=== PATIENT | male | born 1975 | race African-American/Black ===

== ENCOUNTER 2018-03-29 11:08 | Emergency (ER) | payer OTHER ==
[~2018-03-29] VITALS: Ht 185.4 cm; Wt 104.0 kg
[~2018-03-29 11:08] MED LIST: MEDROLDOSEPACK PO; TAMIFLU75 MG PO; TYLENOL325 MG PO
[2018-03-29 11:44] LABS: HEMOGLOBIN 15.2 gm/dL (14.0-18.0); MCH 30.2 pg (26.0-34.0); MCV 91.5 fL (80.0-100.0); MPV 7.8 fl. (7.2-11.1); NUCLEATED RBCS 0 /100WBC; PLATELET COUNT* 214 thou/uL (150-400); RBC 5.02 mil/uL (4.50-6.00); RDW-CV 13.9 % (10.5-14.5); WBC 6.8 thou/uL (4.0-11.0)
[2018-03-29 11:52] LABS: ANION GAP 11 mmol/L (7-16); APTT 25.7 Seconds (25.0-31.3); BUN 17 mg/dL (7-18); CALCIUM 8.8 mg/dL (8.5-10.1); CHLORIDE 102 mmol/L (98-107); CO2 26 mmol/L (21-32); CREATININE 1.4 mg/dL (0.6-1.3); GLUCOSE 98 mg/dL (70-99); POTASSIUM 3.7 mmol/L (3.5-5.1); PROTIME 10.7 Seconds (9.20-11.50); SODIUM 139 mmol/L (136-145)
[2018-03-29 12:03] LABS: ALBUMIN 4.1 g/dL (3.4-5.0); ALKALINE PHOSPHATASE 78 U/L (46-116); LIPASE 109 U/L (73-393); MAGNESIUM 1.5 mg/dL (1.8-2.4); NT-PRO BRAIN NAT PEPTIDE 38 pg/mL (<300); SGOT 24 U/L (15-37); SGPT 26 U/L (30-65); TOTAL BILIRUBIN 0.7 mg/dL (<0.1-1.0); TOTAL PROTEIN 7.6 g/dL (6.4-8.2); TROPONIN-I LEVEL <0.06 ng/mL (<0.06)
[2018-03-29 12:15] LABS: ABSOLUTE LYMPHOCYTES 0.5 thou/uL (0.8-5.3); ABSOLUTE MONOCYTES 0.1 thou/uL (0.0-1.2); ABSOLUTE NEUTROPHILS 6.1 thou/uL (1.6-8.1); PLATELET ESTIMATE ADEQUATE
[2018-03-29 12:25] LABS: INFLUENZA A ANTIGEN None Detected (None Detect); INFLUENZA B ANTIGEN None Detected (None Detect)
[2018-03-29] MEDS ORDERED: AUGMENTIN 875-1 EACH PO (12:42)
[2018-03-29] MEDS ORDERED: VENTOLIN HFA 1818 GM INH (12:42)
[2018-03-29] MEDS ORDERED: PREDNISONE 20 M20 M1 PO (12:42)
[2018-03-29 12:55] VITALS: BP 157/79
--- NOTE | 2018-03-29 16:51 | EKG ---
[place] [address] ELECTROCARDIOGRAM REPORT Name: PAMELA MISTRY Room: [facility]#: [id number] Admission: 03/29/18 Attend Phys: Discharge: 03/29/18 Date of : 71 Report #: [id number] THIS REPORT FOR: //name// [facility] ED Test Date: 2018-03-29 Test Time: 11:20:37 Pat Name: PAMELA MISTRY Department: Room: Gender: M Substance Abuse Technician: Manjula NICOLE : 1975 Requested By: Mahamed Westfall Order Number: [id number] MD: Loco Hernandez Measurements Intervals Ayer Rate: 111 P: 62 TN: 140 QRS: 36 QRSD: 92 T: 40 QT: 294 QTc: 400 Interpretive Statements Sinus tachycardia RSR' in V1 or V2, right VCD or RVH Compared to ECG 03/22/2015 21:33:16 Right ventricular hypertrophy now present Sinus rhythm no longer present T-wave abnormality no longer present Electronically Signed On 03-29-2018 16:50:57 BEARING MACHINE OPERATOR by Loco Hernandez [email or web address] <ELECTRONICALLY SIGNED> By: Loco Hernandez MD, FACC 03/29/18 1650 1120 1120 Loco Hernandez MD, FACC /EPI
== END 2018-03-29 12:56 | disposition home or self-care (01) ==
LOC: M.ERS 11:08
PROVIDERS: Family Medicine
DX: J06.9 Acute upper respiratory infection, unspecified (principal); J45.909 Unspecified asthma, uncomplicated; I48.91 Unspecified atrial fibrillation

== ENCOUNTER 2018-04-02 09:53 | Inpatient (IN) | payer OTHER ==
[~2018-04-02] VITALS: Ht 198.1 cm; Wt 98.9 kg
--- NOTE | ~2018-04-02 | CON ---
[address] [address] CONSULTATION Name: PAMELA MISTRY Room: [address] IN M.R.#: [id number] Admission: 04/02/18 Attend Phys: Marcus Doherty MD Discharge: Date of : 71 Report #: [id number] THIS REPORT FOR: //name// CC: Marcus Vela DATE OF SERVICE: 04/03/2018 CONSULTATION: Infectious Diseases. HISTORY OF PRESENT ILLNESS: The patient is a 42-year-old gentleman admitted to the hospital yesterday when he was called by the ER that his previously drawn blood cultures had turned positive. The patient has been feeling ill for about 3 weeks. He was in the ER on 03/22/2018 complaining of chest pain. A cardiac workup was negative except for CPK of 602. Troponin negative. EKG, nonspecific. The patient returned to the ER on 03/29/2018 feeling worse. He is complaining of respiratory symptoms with congestion, headache, neck ache, fevers, chills with rigors. Workup was again negative and the patient was discharged with diagnosis of asthmatic bronchitis on Augmentin and prednisone 60 mg a day, tapering over a week. At that time, he was noted to have a temperature of 37.7 and a CPK was still elevated at 535. The patient then was called back on 04/02/2018 when the Microbiology Department in Center reported both blood cultures drawn on 03/29/2018 were positive for gram-negative rods. Workup for source of infection was negative. Today, the lab reports that the organism is identified as Haemophilus influenza in 2/2 blood cultures. In this setting, the patient was admitted to the hospital and Infectious Disease consultation was requested. PAST MEDICAL HISTORY: Significant for asthma and atrial fibrillation. The patient has a diagnosis of anxiety. He generally is healthy without ongoing medical problems. He usually works out, but has felt too ill for the last 3 or 4 weeks to really do his workout regimen. FAMILY HISTORY: Noncontributory. SOCIAL HISTORY: The patient's face sheet lists him as , although he describes himself as with emergency contact at the same address as him. He says his partner is a schoolteacher. 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 He denies use of tobacco, alcohol or drugs. He denies any HIV risk factors including sex with men, sex with prostitutes, IV drug use, etc. REVIEW OF SYSTEMS: The patient says he already feels much better since starting the oral antibiotic on 03/29/2018. He has not had any further fevers, chills, [place] [address] CONSULTATION Name: PAMELA MISTRY Room: [address] IN [facility]#: [id number] Admission: 04/02/18 Attend Phys: Marcus Doherty MD Discharge: Date of : 71 Report #: [id number] sweats. The patient denies headache, sinus congestion, sore throat, trouble swallowing. He notes a little bit of bloody drainage, which he thinks is from his sinuses. He still has some congestion and stiffness in his upper neck. Occasional sore throat, but mild. The patient says his cough has been generally dry and nonproductive. He has no dyspnea. His chest pain is much improved. The patient denies gastrointestinal symptoms including nausea, vomiting, diarrhea, constipation. Denies any urinary symptoms. He has some generalized aching in the extremities, which has improved with the Augmentin and prednisone. PHYSICAL EXAMINATION: GENERAL: The patient appears to be healthy middle-aged gentleman, alert, oriented, comfortable, not in any distress. VITAL SIGNS: Normal. The patient is afebrile. SKIN: Shows no rash, lesion or exanthem. ENT: Negative. No adenopathy. HEART: Sounds normal. LUNGS: Clear. ABDOMEN: Belly soft, nontender. EXTREMITIES: Unremarkable. LABORATORY DATA: White count is 12.8, hemoglobin 13.9, platelet 234,000. Electrolytes, BUN, creatinine, lipase, lactate were all normal. CPK on 03/29/[address] of the abdomen was unremarkable. The lung bases, which were seen in the abdominal study was clear. Chest x-ray 03/29/2018 was clear. ASSESSMENT AND PLAN: In summary, we have a 42-year-old generally healthy gentleman with upper respiratory symptoms and cough who had Haemophilus influenza in 2/2 blood cultures. I suggest we treat the patient with Rocephin 2 grams IV daily. If the patient continues to do well, we can probably discharge him tomorrow after his morning dose of Rocephin and continue outpatient infusion for a few days before going back to oral antibiotics. I would like to do a followup chest x-ray and CPK. We will have forensic social worker look at options for outpatient infusion. I appreciate the opportunity of input in the care of this pleasant gentleman. Dr. Lane will return tomorrow and assume followup care and can decide on how much IV versus oral antibiotics the patient would require. Thank you again for this consultation. By: [id number] christopher Matthews
[~2018-04-02 09:53] MED LIST changes: +AUGMENTIN 875-1 EACH PO; +PREDNISONE 20 M20 M1 PO; +VENTOLIN HFA 1818 GM INH
[2018-04-02 10:04] VITALS: BP 138/83
[2018-04-02] MEDS ORDERED: ANXIETY MED (10:06)
[2018-04-02 10:43] LABS: URINE BILIRUBIN NEGATIVE (Negative); URINE BLOOD 2+ (Negative); URINE CLARITY CLEAR; URINE COLOR YELLOW; URINE GLUCOSE-RANDOM NEGATIVE (Negative); URINE KETONES NEGATIVE (Negative); URINE LEUKOCYTES-REFLEX NEGATIVE (Negative); URINE NITRITE-REFLEX NEGATIVE (Negative); URINE PROTEIN NEGATIVE (Negative); URINE SPECIFIC GRAVITY >= 1.030 (1.005-1.030)
[2018-04-02 10:57] LABS: SQUAMOUS 0-3 Few /LPF (0-3); URINE RBC 3-10 Few /HPF (0-2); URINE WBC-REFLEX 0-5 Rare /HPF (0-5)
[2018-04-02 10:57] LABS: HEMATOCRIT 41.8 % (42.0-52.0); HEMOGLOBIN 14.1 gm/dL (14.0-18.0); MCH 30.3 pg (26.0-34.0); MCHC 33.7 g/dL (28.0-37.0); MPV 7.6 fl. (7.2-11.1); NUCLEATED RBCS 0 /100WBC; PLATELET COUNT* 234 thou/uL (150-400); RBC 4.64 mil/uL (4.50-6.00); WBC 12.7 thou/uL (4.0-11.0)
[2018-04-02 10:58] LABS: BACTERIA-REFLEX 1-9 Few /HPF (None Seen); CRYSTALS None Seen /LPF (None Seen); HYALINE CASTS 0-3 Few /LPF (None Seen); MUCUS >6 Heavy strn/LPF (None Seen)
[2018-04-02 11:06] LABS: ANION GAP 9 mmol/L (7-16); BUN 18 mg/dL (7-18); CALCIUM 8.7 mg/dL (8.5-10.1); CHLORIDE 105 mmol/L (98-107); CO2 28 mmol/L (21-32); CREATININE 1.2 mg/dL (0.6-1.3); GLUCOSE 90 mg/dL (70-99); POTASSIUM 3.4 mmol/L (3.5-5.1); SODIUM 142 mmol/L (136-145)
[2018-04-02 11:13] LABS: ALBUMIN 3.4 g/dL (3.4-5.0); ALKALINE PHOSPHATASE 64 U/L (46-116); SGOT 23 U/L (15-37); SGPT 36 U/L (30-65); TOTAL BILIRUBIN 0.2 mg/dL (<0.1-1.0); TROPONIN-I LEVEL <0.06 ng/mL (<0.06)
[2018-04-02 11:22] LABS: AMP/METHAMP Negative (Negative); BARBITURATES Negative (Negative); BENZODIAZEPINES Negative (Negative); COCAINE Negative (Negative); METHADONE Negative (Negative); OPIATES Negative (Negative); PCP Negative (Negative); THC Negative (Negative)
[2018-04-02 11:25] LABS: ABSOLUTE LYMPHOCYTES 4.4 thou/uL (0.8-5.3); ABSOLUTE NEUTROPHILS 7.2 thou/uL (1.6-8.1); PLATELET ESTIMATE ADEQUATE
[2018-04-02 11:26] LABS: ANISOCYTOSIS 1+; POIKILOCYTOSIS 1+
[2018-04-02 14:20] VITALS: BP 133/91
[2018-04-02 14:30] VITALS: BP 142/97
[2018-04-02 19:50] VITALS: BP 119/69
[2018-04-03 00:05] VITALS: BP 134/85
[2018-04-03 04:00] VITALS: BP 122/81
[2018-04-03 04:21] LABS: MCH 30.1 pg (26.0-34.0); NUCLEATED RBCS 0 /100WBC; PLATELET COUNT* 234 thou/uL (150-400)
[2018-04-03 04:26] LABS: ABSOLUTE BASOPHILS 0.1 thou/uL (0.0-0.2); ABSOLUTE EOSINOPHILS 0.3 thou/uL (0.0-0.7); ABSOLUTE LYMPHOCYTES 5.6 thou/uL (0.8-5.3); ABSOLUTE MONOCYTES 1.3 thou/uL (0.0-1.2); ABSOLUTE NEUTROPHILS 5.5 thou/uL (1.6-8.1); BASOPHILS 0.6 %; EOSINOPHILS 2.2 %; HEMATOCRIT 41.5 % (42.0-52.0); HEMOGLOBIN 13.9 gm/dL (14.0-18.0); LYMPHOCYTES 43.4 %; MCHC 33.4 g/dL (28.0-37.0); MONOCYTES 10.4 %; MPV 7.9 fl. (7.2-11.1); POLYS 43.4 %; RBC 4.61 mil/uL (4.50-6.00); RDW-CV 14.1 % (10.5-14.5); WBC 12.8 thou/uL (4.0-11.0)
[2018-04-03 04:40] LABS: CALCIUM 8.4 mg/dL (8.5-10.1); CREATININE 1.1 mg/dL (0.6-1.3); POTASSIUM 4.1 mmol/L (3.5-5.1)
[2018-04-03 08:00] VITALS: BP 131/92
--- NOTE | 2018-04-03 15:36 | EKG ---
[place] [address] ELECTROCARDIOGRAM REPORT Name: PAMELA MISTRY Room: [address] ADM [place] ..#: [id number] Admission: 04/02/18 Attend Phys: Marcus Doherty MD Discharge: Date of : 71 Report #: [id number] THIS REPORT FOR: //name// [facility] ED Test Date: 2018-04-02 Test Time: 10:33:25 Pat Name: PAMELA MISTRY Department: Room: [facility] Gender: Business Solutions Analyst: Aleah QUIGLEY : 1975 Requested By: Marcia Lorenzo Order Number: [id number] MD: Loco Hernandez Measurements Intervals Rogers Rate: 56 P: 63 DC: 151 QRS: 10 QRSD: 116 T: 11 QT: 400 QTc: 387 Interpretive Statements Sinus rhythm Left atrial enlargement Nonspecific intraventricular conduction delay Minimal ST elevation, anterior leads Compared to ECG 03/29/2018 11:20:37 Atrial abnormality now present Intraventricular conduction delay now present ST (T wave) deviation now present Sinus tachycardia no longer present Right ventricular hypertrophy no longer present Electronically Signed On 04-03-2018 15:36:00 MACHINE INSTALLER by Loco Hernandez [email or web address] <ELECTRONICALLY SIGNED> By: Loco Hernandez MD, FACC 04/03/18 1536 1033 1033 Loco Hernandez MD, FAC /EPI
[2018-04-03 16:00] VITALS: BP 151/78
[2018-04-03 20:00] VITALS: BP 142/93
[2018-04-04] VITALS: BP 131/82
[2018-04-04 04:00] VITALS: BP 139/87
[2018-04-04 04:34] LABS: ABSOLUTE BASOPHILS 0.1 thou/uL (0.0-0.2); ABSOLUTE EOSINOPHILS 0.4 thou/uL (0.0-0.7); ABSOLUTE LYMPHOCYTES 4.7 thou/uL (0.8-5.3); ABSOLUTE MONOCYTES 1.1 thou/uL (0.0-1.2); ABSOLUTE NEUTROPHILS 8.5 thou/uL (1.6-8.1); BASOPHILS 0.5 %; EOSINOPHILS 2.9 %; HEMATOCRIT 45.4 % (42.0-52.0); HEMOGLOBIN 14.9 gm/dL (14.0-18.0); LYMPHOCYTES 31.8 %; MCH 29.7 pg (26.0-34.0); MCHC 32.9 g/dL (28.0-37.0); MCV 90.4 fL (80.0-100.0); MONOCYTES 7.4 %; MPV 7.8 fl. (7.2-11.1); NUCLEATED RBCS 0 /100WBC; PLATELET COUNT* 264 thou/uL (150-400); POLYS 57.4 %; RBC 5.02 mil/uL (4.50-6.00); RDW-CV 13.9 % (10.5-14.5); WBC 14.7 thou/uL (4.0-11.0)
[2018-04-04 08:00] VITALS: BP 137/86
[2018-04-04 12:16] VITALS: BP 130/84
[2018-04-04 17:07] VITALS: BP 126/68
[2018-04-04 20:00] VITALS: BP 123/63
[2018-04-05] VITALS: BP 122/66
[2018-04-05 08:31] VITALS: BP 126/88
[2018-04-05 09:24] VITALS: BP 126/88
[2018-04-05 10:55] VITALS: BP 126/88
[2018-04-05 12:47] VITALS: BP 126/88
== END 2018-04-05 12:48 | disposition home or self-care (01) | DRG 871 ==
LOC: M.ERS 09:53 → M.TBA-ER 11:31 → M.2W 11:31 → M.ORTHSURG 04-05 07:34
PROVIDERS: Emergency Medicine; Internal Medicine Infectious Disease; Physician Assistant; ADMIT Internal Medicine
DX: A41.3 Sepsis due to Hemophilus influenzae (principal); J14 Pneumonia due to Hemophilus influenzae; J45.909 Unspecified asthma, uncomplicated; I48.91 Unspecified atrial fibrillation; F41.9 Anxiety disorder, unspecified; J06.9 Acute upper respiratory infection, unspecified; Z79.899 Other long term (current) drug therapy

== ENCOUNTER 2018-11-27 14:02 | Emergency (ER) | payer BC ==
[~2018-11-27] VITALS: Ht 198.1 cm; Wt 113.4 kg
[~2018-11-27 14:02] MED LIST changes: +ANXIETY MED
[2018-11-27] MEDS ORDERED: PERCOCET PO (14:10)
[2018-11-27] MEDS ORDERED: IBU800 MG PO (14:10)
[2018-11-27 14:44] LABS: ABSOLUTE BASOPHILS 0.1 thou/uL (0.0-0.2); ABSOLUTE EOSINOPHILS 0.2 thou/uL (0.0-0.7); ABSOLUTE LYMPHOCYTES 2.2 thou/uL (0.8-5.3); ABSOLUTE MONOCYTES 0.8 thou/uL (0.0-1.2); ABSOLUTE NEUTROPHILS 6.7 thou/uL (1.6-8.1); BASOPHILS 0.7 %; EOSINOPHILS 2.4 %; HEMATOCRIT 41.8 % (42.0-52.0); LYMPHOCYTES 21.8 %; MCH 30.1 pg (26.0-34.0); MCHC 33.4 g/dL (28.0-37.0); MPV 7.2 fl. (7.2-11.1); NUCLEATED RBCS 0 /100WBC; PLATELET COUNT* 269 thou/uL (150-400); POLYS 67.1 %; RBC 4.65 mil/uL (4.50-6.00); RDW-CV 13.6 % (10.5-14.5)
[2018-11-27 14:55] LABS: ANION GAP 9 mmol/L (7-16); BUN 18 mg/dL (7-18); CALCIUM 9.1 mg/dL (8.5-10.1); CHLORIDE 105 mmol/L (98-107); CO2 27 mmol/L (21-32); CREATININE 1.5 mg/dL (0.6-1.3); GLUCOSE 101 mg/dL (70-99); POTASSIUM 3.8 mmol/L (3.5-5.1); SODIUM 141 mmol/L (136-145)
[2018-11-27 15:05] LABS: ALKALINE PHOSPHATASE 64 U/L (46-116); SGOT 55 U/L (15-37); SGPT 51 U/L (30-65); TOTAL BILIRUBIN 0.3 mg/dL (<0.1-1.0); TOTAL PROTEIN 7.5 g/dL (6.4-8.2); TROPONIN-I LEVEL <0.06 ng/mL (<0.06)
[2018-11-27 19:10] VITALS: BP 137/70
--- NOTE | 2018-11-28 17:01 | EKG ---
[place] [address] ELECTROCARDIOGRAM REPORT Name: PAMELA MISTRY Room: [facility]#: [id number] Admission: 11/27/18 Attend Phys: Discharge: 11/27/18 Date of : 71 Report #: [id number] THIS REPORT FOR: //name// [facility] ED Test Date: 2018-11-27 Test Time: 14:10:37 Pat Name: PAMELA MISTRY Department: Room: Gender: M Supervisor [employer]: : 1975 Requested By: Marcia Bautista Order Number: [id number] MD: Loco Hernandez Measurements Intervals Premium Rate: 89 P: 62 MD: 161 QRS: 16 QRSD: 140 T: 8 QT: 347 QTc: 423 Interpretive Statements Sinus rhythm Probable left atrial enlargement Incomplete right bundle branch block Compared to ECG 04/02/2018 10:33:25 ST (T wave) deviation no longer present Electronically Signed On 11-28-2018 17:00:58 CDT by Loco Hernandez [email or web address] <ELECTRONICALLY SIGNED> By: Loco Hernandez MD, MERGED WITH [facility] 11/28/18 1700 141 09 Loco Hernandez MD, MERGED WITH [facility] /EPI
== END 2018-11-27 19:11 | disposition home or self-care (01) ==
LOC: M.ERS 14:02
PROVIDERS: Personal Emergency Response Attendant
DX: R55 Syncope and collapse (principal); R42 Dizziness and giddiness; J45.909 Unspecified asthma, uncomplicated; I48.91 Unspecified atrial fibrillation; F41.9 Anxiety disorder, unspecified

== ENCOUNTER 2020-09-30 12:10 | Emergency (ER) | payer BC ==
[~2020-09-30] VITALS: Ht 198.1 cm; Wt 99.8 kg
[~2020-09-30 12:10] MED LIST changes: +IBU800 MG PO; +PERCOCET PO
[2020-09-30 13:09] LABS: ABSOLUTE BASOPHILS 0.1 thou/uL (0.0-0.2); ABSOLUTE EOSINOPHILS 0.1 thou/uL (0.0-0.7); ABSOLUTE LYMPHOCYTES 2.1 thou/uL (0.8-5.3); ABSOLUTE MONOCYTES 0.9 thou/uL (0.0-1.2); ABSOLUTE NEUTROPHILS 9.7 thou/uL (1.6-8.1); BASOPHILS 0.9 %; EOSINOPHILS 0.5 %; HEMATOCRIT 42.4 % (42.0-52.0); HEMOGLOBIN 14.3 gm/dL (14.0-18.0); LYMPHOCYTES 16.1 %; MCHC 33.7 g/dL (28.0-37.0); MCV 91.8 fL (80.0-100.0); MONOCYTES 6.7 %; MPV 6.7 fl. (7.2-11.1); NUCLEATED RBCS 0 /100WBC; PLATELET COUNT* 303 thou/uL (150-400); POLYS 75.8 %; RBC 4.62 mil/uL (4.50-6.00); RDW-CV 13.8 % (10.5-14.5); WBC 12.8 thou/uL (4.0-11.0)
[2020-09-30 13:18] LABS: CALCIUM 8.8 mg/dL (8.5-10.1); CREATININE 1.2 mg/dL (0.6-1.3)
[2020-09-30 13:22] LABS: ALBUMIN 3.8 g/dL (3.4-5.0); TOTAL BILIRUBIN 0.4 mg/dL (<0.1-1.0); TOTAL PROTEIN 6.8 g/dL (6.4-8.2)
[2020-09-30 13:29] LABS: URINE BILIRUBIN NEGATIVE (Negative); URINE BLOOD TRACE (Negative); URINE CLARITY CLEAR; URINE COLOR YELLOW; URINE GLUCOSE-RANDOM NEGATIVE (Negative); URINE KETONES NEGATIVE (Negative); URINE LEUKOCYTES-REFLEX NEGATIVE (Negative); URINE NITRITE-REFLEX NEGATIVE (Negative); URINE PROTEIN NEGATIVE (Negative); URINE UROBILINOGEN 0.2 E.U./dl (0.2-1.0)
[2020-09-30] MEDS ORDERED: IBUPROFEN 800800 M1 PO (15:52)
[2020-09-30] MEDS ORDERED: BENTYL 10 MG CA10 M1 PO (15:52)
[2020-09-30 16:00] VITALS: BP 124/70
== END 2020-09-30 16:06 | disposition home or self-care (01) ==
LOC: M.ERS 12:10
PROVIDERS: Nurse Practitioner Family
DX: K59.00 Constipation, unspecified (principal); J45.909 Unspecified asthma, uncomplicated; I48.91 Unspecified atrial fibrillation; Z79.899 Other long term (current) drug therapy